=== PATIENT | male | born 1950 | race African-American/Black ===

== ENCOUNTER 2022-01-06 16:51 | Inpatient (IN) ==
[2022-01-06] MEDS ORDERED: NOREPINEPHRINE 4 MG/4 ML VIAL IV ONE ×2 (17:00→20:26)
[2022-01-06] MEDS: NOREPINEPHRINE 8 MG in SODIUM CHLORIDE 0.9% 242 ML IV PRN ×2 (17:06→20:29)
[2022-01-06 17:28] LABS: Arterial Base Excess iSTAT -7 MMOL/L (-2.5-2.5); Arterial Bicarbonate iSTAT 19.1 MMOL/L (20-26); Arterial O2 Saturation iSTAT 100 % (95-100); Arterial PCO2 iSTAT 40 MM HG (35-48); Arterial PO2 iSTAT 268 MM HG (80-95); Arterial Total CO2 iSTAT 20 MMO/L (23-27); Arterial pH iSTAT 7.287 (7.35-7.45)
[2022-01-06 17:35] LABS: Basophils % 0.4 % (0.0-0.8); Eosinophils % 0.4 % (0.00-10.9); Hematocrit 26.4 VOL% (42.0-52.0); Hemoglobin 8.1 GM/DL (14.0-18.0); Immature Granulocytes % 5.9 %; Immature Granulocytes Absolute 0.33 #; Lymphocytes # 2.8 10*3/uL (1.4-4.0); Mean Corpuscular HGB Conc 30.7 GM/DL (32-36); Mean Corpuscular Volume 89.5 FL (87-102); Mean Platelet Volume 11.1 FL (9.6-12.0); Monocytes % 4.3 % (1.7-12.7); NRBC # 0.17 10*3/uL; Platelet Count 94 T/CUMM (130-400); Red Blood Count 2.95 MC/CUMM (3.8-5.5); Red Cell Distribution Width 20.4 % (9.3-17.3); White Blood Count 5.6 T/CUMM (4-12)
[2022-01-06] MEDS ORDERED: propofoL 200 MG/20 ML VIAL IV ONE (17:46)
[2022-01-06] MEDS ORDERED: HYDROCORTISONE 100 MG VIAL IV STA (18:03)
[2022-01-06 18:09] LABS: Alanine Aminotransferase 43 U/L (16-61); Albumin 1.7 G/DL (3.4-5.0); Alkaline Phosphatase > 2330 U/L (45-117); Aspartate Amino Transferase 162 U/L (0-37); Bilirubin,Total < 0.39 MG/DL (0.20-1.00); Blood Urea Nitrogen 7 MG/DL (7-18); Calcium 7.6 MG/DL (8.5-10.1); Carbon Dioxide 26 MMOL/L (21-32); Estimated Glom Filtration Rate 122 ML/MIN; Glucose 102 MG/DL (74-106); Osmolality,Calculated 285.7 MOS/KG (273-304); Potassium 3.8 MMOL/L (3.5-5.1); Sodium 145 MMOL/L (136-145); Total Protein 4.6 G/DL (6.4-8.2)
[2022-01-06 18:12] LABS: Bacteria,Urine Occasional /HPF (Few); Mucus,Urine Occasional /LPF (Occasional); RBC,Urine 2 /HPF (0-4); Squamous Epithelial Cell,Urine Occasional /HPF (0-10)
[2022-01-06 18:15] LABS: Bilirubin,Urine Negative (Negative); Blood, Urine Trace mg/dL (Negative); Glucose,Urine (UA) Negative (Negative); Ketones,Urine Negative (Negative); Nitrite,Urine Negative (Negative); Protein,Urine 30 mg/dL (Negative); Urine Appearance Clear (Clear); Urine Color Yellow (Yellow); Urine Urobilinogen 0.2 eU/dL (<2.0)
[2022-01-06 18:24] LABS: Barbiturates Screen,Urine Negative (Negative); Benzodiazepines Screen,Urine Negative (Negative); Cannabinoid Screen,Urine Negative (Negative); Opiate Screen,Urine Positive (Negative); Phencyclidine Screen,Urine Negative (Negative)
[2022-01-06] MEDS ORDERED: DEXTROSE 50% 25 GM/50 ML SYRINGE IV ONE (18:29)
[2022-01-06 18:37] LABS: Band Neutrophils 5 % (0-10); Lymphocytes 54 % (20-55); Nucleated Red Blood Cells 1 (0-5); Segmented Neutrophils 38 % (50-85); Total Cells Counted 100
[2022-01-06 18:38] LABS: Platelet Estimate Decreased
[2022-01-06] MEDS ORDERED: DEXTROSE 50% 25 GM/50 ML VIAL IV STA (18:38)
[2022-01-06 18:39] LABS: Anisocytosis 3+; Atypical Lymphocytes Moderate
[2022-01-06] MEDS ORDERED: DEXTROSE 50% 25 GM/50 ML SYRINGE IV STA (18:39)
[2022-01-06 18:40] LABS: Poikilocytosis 2+
[2022-01-06] MEDS: DEXTROSE 5% NACL 0.9% 1,000 ML IV SCH (19:35)
[2022-01-06] MEDS ORDERED: ALBUTEROL 2.5 MG/3 ML NEB RESP TX PRN (19:35)
[2022-01-06] MEDS ORDERED: GLUCAGON 1 MG VIAL IM PRN (19:40)
[2022-01-06] MEDS ORDERED: DEXTROSE 10% 250 ML BAG IV PRN (19:45)
[2022-01-06 20:15] LABS: ABG Base Excess -0.9 MMOL/L (-2.5-2.5); ABG HCO3 23.7 MMOL/L (20-26); ABG Oxygen Saturation 97.9 % (95-100); ABG PCO2 38.1 MM HG (35-48); ABG PH 7.401 (7.35-7.45); ABG TCO2 21.5 MMOL/L (23-27)
[2022-01-06 20:22] LABS: Basophils % 0.7 % (0.0-0.8); Eosinophils % 1.3 % (0.00-10.9); Hematocrit 30.2 VOL% (42.0-52.0); Hemoglobin 9.7 GM/DL (14.0-18.0); Immature Granulocytes Absolute 0.03 #; Lymphocytes # 0.8 10*3/uL (1.4-4.0); Lymphocytes % 50.7 % (21.2-54.2); Mean Corpuscular HGB Conc 32.1 GM/DL (32-36); Mean Corpuscular Volume 84.8 FL (87-102); Mean Platelet Volume 11.7 FL (9.6-12.0); Monocytes % 3.3 % (1.7-12.7); NRBC # 0.06 10*3/uL; Platelet Count 95 T/CUMM (130-400); Red Blood Count 3.56 MC/CUMM (3.8-5.5); Red Cell Distribution Width 20.2 % (9.3-17.3); White Blood Count 1.5 T/CUMM (4-12)
[2022-01-06 20:29] LABS: Bacteria,Urine Occasional /HPF (Few); Hyaline Casts,Urine 4 /LPF (0-3); Mucus,Urine Occasional /LPF (Occasional); RBC,Urine 11 /HPF (0-4); Squamous Epithelial Cell,Urine Occasional /HPF (0-10)
[2022-01-06 20:30] LABS: Bilirubin,Urine Negative (Negative); Glucose,Urine (UA) Negative (Negative); Ketones,Urine Negative (Negative); Nitrite,Urine Negative (Negative); Protein,Urine 30 mg/dL (Negative); Urine Appearance Clear (Clear); Urine Color Yellow (Yellow); Urine Specific Gravity 1.015 (1.001-1.035)
[2022-01-06 20:31] LABS: Blood, Urine Moderate mg/dL (Negative); Urine Urobilinogen 0.2 eU/dL (<2.0)
[2022-01-06 20:39] LABS: INR 1.2; PT Patient Result 13.3 SECS (10.5-12.0)
[2022-01-06] MEDS ORDERED: ENOXAPARIN 40 MG/0.4 ML SYRINGE SUBCUT SCH (21:00)
[2022-01-06 21:13] LABS: Alanine Aminotransferase 57 U/L (16-61); Albumin 1.6 G/DL (3.4-5.0); Alkaline Phosphatase > 2330 U/L (45-117); Amylase 143 U/L (25-115); Aspartate Amino Transferase 222 U/L (0-37); Blood Urea Nitrogen 9 MG/DL (7-18); CKMB % 2.6 %; Calcium 6.3 MG/DL (8.5-10.1); Carbon Dioxide 23 MMOL/L (21-32); Estimated Glom Filtration Rate 139 ML/MIN; Glucose 140 MG/DL (74-106); Potassium 3.1 MMOL/L (3.5-5.1); Sodium 143 MMOL/L (136-145); Total Protein 4.9 G/DL (6.4-8.2)
[2022-01-06] MEDS ORDERED: MAGNESIUM SULF RIDER 1 GM/100 ML PREMIX IV PRN (21:26)
[2022-01-06] MEDS: POTASSIUM CHLORIDE RIDER 20 MEQ/100 ML PREMIX IV PRN (21:35)
[2022-01-06] MEDS ORDERED: CALCIUM GLUCONATE RIDER 1,000 MG/50 ML PREMIX IV ONE (22:01)
[2022-01-06] MEDS: HYDROCORTISONE 100 MG VIAL IV SCH (22:32)
[2022-01-06] MEDS ORDERED: ENOXAPARIN 40 MG/0.4 ML SYRINGE SUBCUT ONE (22:36)
[2022-01-07] MEDS ORDERED: CISATRACURIUM 10 MG/5 ML VIAL IV ONE ×2 (01:08→01:24)
[2022-01-07 02:30] LABS: Basophils % 0.5 % (0.0-0.8); Hematocrit 28.3 VOL% (42.0-52.0); Immature Granulocytes % 2.9 %; Immature Granulocytes Absolute 0.06 #; Lymphocytes # 0.7 10*3/uL (1.4-4.0); Lymphocytes % 31.7 % (21.2-54.2); Mean Corpuscular HGB Conc 31.8 GM/DL (32-36); Mean Corpuscular Volume 85.2 FL (87-102); Mean Platelet Volume 9.6 FL (9.6-12.0); Monocytes % 5.9 % (1.7-12.7); NRBC # 0.04 10*3/uL; Red Blood Count 3.32 MC/CUMM (3.8-5.5); Red Cell Distribution Width 20.3 % (9.3-17.3); White Blood Count 2.1 T/CUMM (4-12)
[2022-01-07 02:31] LABS: Platelet Count 75 T/CUMM (130-400)
[2022-01-07 02:41] LABS: Calcium 7.4 MG/DL (8.5-10.1); Osmolality,Calculated 286.1 MOS/KG (273-304); Potassium 2.7 MMOL/L (3.5-5.1)
[2022-01-07 02:42] LABS: INR 1.3; Partial Thromboplastin Time 30.5 SECS (23.8-32.1)
[2022-01-07] MEDS: POTASSIUM CHLORIDE RIDER 20 MEQ/100 ML PREMIX IV PRN ×4 (02:50→15:14)
[2022-01-07 03:03] LABS: Band Neutrophils 12 % (0-10); Eosinophils 2 % (0-10); Hypochromia 1+; Lymphocytes 36 % (20-55); Microcytosis 1+; Platelet Estimate Decreased; Segmented Neutrophils 45 % (50-85); Total Cells Counted 100
[2022-01-07] MEDS ORDERED: MEPERIDINE 25 MG/1 ML VIAL IV ONE (03:04)
[2022-01-07] MEDS: DEXTROSE 5% NACL 0.9% 1,000 ML IV SCH ×2 (03:30→05:07)
[2022-01-07 04:18] LABS: CKMB % 2.7 %; Calcium 7.5 MG/DL (8.5-10.1); High Sensitive Troponin I* 64.8 ng/L (0-78); Potassium 2.7 MMOL/L (3.5-5.1)
[2022-01-07 04:26] LABS: ABG Base Excess -0.7 MMOL/L (-2.5-2.5); ABG HCO3 23.9 MMOL/L (20-26); ABG PCO2 33.4 MM HG (35-48); ABG PH 7.442 (7.35-7.45); ABG TCO2 20.2 MMOL/L (23-27)
[2022-01-07] MEDS: HYDROCORTISONE 100 MG VIAL IV SCH ×4 (04:57→22:18)
[2022-01-07] MEDS ORDERED: CISATRACURIUM 10 MG/5 ML VIAL IV PRN (05:08)
[2022-01-07] MEDS ORDERED: INSULIN REGULAR 100 UNIT/ML IV ONE ×4 (06:22→20:17)
[2022-01-07] MEDS: POTASSIUM CHLORIDE RIDER 10 MEQ/100 ML PREMIX IV PRN ×2 (06:46→12:09)
[2022-01-07] MEDS: PIPERACILLIN/TAZOBACTAM 3,375 MG in SODIUM CHLORIDE 0.9% 100 ML IV SCH ×2 (09:13→17:10)
[2022-01-07] MEDS: PANTOPRAZOLE 40 MG VIAL IV SCH (09:14)
[2022-01-07] MEDS: ENOXAPARIN 80 MG/0.8 ML SYRINGE SUBCUT SCH ×2 (09:14→20:42)
[2022-01-07] MEDS: MINERAL OIL/PETROLATUM OPH OINT 3.5 GM TUBE BOTH EYES SCH ×3 (09:15→20:43)
[2022-01-07 09:23] LABS: CKMB % 2.8 %; Calcium 7.3 MG/DL (8.5-10.1); High Sensitive Troponin I* 42.4 ng/L (0-78); Osmolality,Calculated 290.1 MOS/KG (273-304); Potassium 3.5 MMOL/L (3.5-5.1)
[2022-01-07 09:51] LABS: Bacteria,Urine Occasional /HPF (Few); RBC,Urine 5 /HPF (0-4); Squamous Epithelial Cell,Urine Occasional /HPF (0-10)
[2022-01-07 09:52] LABS: Bilirubin,Urine Negative (Negative); Glucose,Urine (UA) Negative (Negative); Ketones,Urine Negative (Negative); Nitrite,Urine Negative (Negative); Protein,Urine Negative (Negative); Urine Appearance Clear (Clear); Urine Color Yellow (Yellow); Urine Specific Gravity <= 1.005 (1.001-1.035)
[2022-01-07 09:53] LABS: Blood, Urine Trace mg/dL (Negative); Urine Urobilinogen 0.2 eU/dL (<2.0)
[2022-01-07] MEDS: LACTATED RINGERS 1,000 ML IV SCH ×2 (09:57→23:34)
[2022-01-07 09:58] LABS: Eosinophils % 0.4 % (0.00-10.9); Hematocrit 26.7 VOL% (42.0-52.0); Hemoglobin 8.6 GM/DL (14.0-18.0); Immature Granulocytes % 1.7 %; Immature Granulocytes Absolute 0.04 #; Lymphocytes # 0.8 10*3/uL (1.4-4.0); Lymphocytes % 31.7 % (21.2-54.2); Mean Corpuscular HGB Conc 32.2 GM/DL (32-36); Mean Corpuscular Volume 84.2 FL (87-102); Mean Platelet Volume 9.4 FL (9.6-12.0); Monocytes % 7.1 % (1.7-12.7); NRBC # 0.04 10*3/uL; Neutrophils % 59.1 % (38.7-73.9); Platelet Count 75 T/CUMM (130-400); Red Blood Count 3.17 MC/CUMM (3.8-5.5); Red Cell Distribution Width 20.1 % (9.3-17.3); White Blood Count 2.4 T/CUMM (4-12)
[2022-01-07 10:05] LABS: INR 1.3
[2022-01-07 10:07] LABS: Partial Thromboplastin Time 43.1 SECS (23.8-32.1)
[2022-01-07] MEDS ORDERED: MAGNESIUM SULF RIDER 2 GM/50 ML PREMIX IV ONE (10:09)
[2022-01-07 11:06] LABS: Hypochromia Slight; Lymphocytes 36 % (20-55); Metamyelocytes 4 %; Microcytosis Slight; Nucleated Red Blood Cells 1 (0-5); Platelet Estimate Adequate; Segmented Neutrophils 54 % (50-85); Total Cells Counted 100
[2022-01-07 11:07] LABS: Burr Cells 1+; Polychromasia Slight; Schistocytes Few; Tear Drop Cells Few
[2022-01-07] MEDS: VANCOMYCIN INJ 1,500 MG in SODIUM CHLORIDE 0.9% 500 ML IV SCH ×2 (11:12→21:19)
[2022-01-07] MEDS: NOREPINEPHRINE 8 MG in SODIUM CHLORIDE 0.9% 242 ML IV PRN (13:06)
[2022-01-07 14:14] LABS: Basophils % 0.4 % (0.0-0.8); Eosinophils % 0.4 % (0.00-10.9); Hematocrit 25.2 VOL% (42.0-52.0); Hemoglobin 8.1 GM/DL (14.0-18.0); Immature Granulocytes % 5.2 %; Immature Granulocytes Absolute 0.14 #; Lymphocytes # 0.8 10*3/uL (1.4-4.0); Lymphocytes % 28.1 % (21.2-54.2); Mean Corpuscular HGB Conc 32.1 GM/DL (32-36); Mean Corpuscular Volume 84.6 FL (87-102); Mean Platelet Volume 10.6 FL (9.6-12.0); Monocytes % 6.7 % (1.7-12.7); NRBC # 0.03 10*3/uL; Neutrophils % 59.2 % (38.7-73.9); Platelet Count 69 T/CUMM (130-400); Red Blood Count 2.98 MC/CUMM (3.8-5.5); White Blood Count 2.7 T/CUMM (4-12)
[2022-01-07 14:21] LABS: INR 1.3; PT Patient Result 14.3 SECS (10.5-12.0)
[2022-01-07 14:41] LABS: Anisocytosis 1+; Burr Cells 1+; Lymphocytes 40 % (20-55); Metamyelocytes 2 %; Myelocytes 1 %; Nucleated Red Blood Cells 1 (0-5); Segmented Neutrophils 43 % (50-85); Total Cells Counted 100
[2022-01-07 14:42] LABS: Hypochromia Slight
[2022-01-07 14:43] LABS: Platelet Estimate Decreased; Polychromasia Slight
[2022-01-07 14:46] LABS: CKMB % 2.9 %; Calcium 7.4 MG/DL (8.5-10.1); High Sensitive Troponin I* 33.8 ng/L (0-78); Potassium 3.9 MMOL/L (3.5-5.1)
[2022-01-07 20:14] LABS: Basophils % 0.4 % (0.0-0.8); Eosinophils % 0.4 % (0.00-10.9); Hematocrit 24.5 VOL% (42.0-52.0); Hemoglobin 8.1 GM/DL (14.0-18.0); Immature Granulocytes % 1.8 %; Immature Granulocytes Absolute 0.05 #; Lymphocytes # 0.8 10*3/uL (1.4-4.0); Lymphocytes % 27.6 % (21.2-54.2); Mean Corpuscular HGB Conc 33.1 GM/DL (32-36); Mean Corpuscular Volume 84.2 FL (87-102); Mean Platelet Volume 11.9 FL (9.6-12.0); Monocytes % 5.1 % (1.7-12.7); NRBC # 0.02 10*3/uL; Neutrophils % 64.7 % (38.7-73.9); Platelet Count 79 T/CUMM (130-400); Red Blood Count 2.91 MC/CUMM (3.8-5.5); White Blood Count 2.7 T/CUMM (4-12)
[2022-01-07] MEDS ORDERED: LACTATED RINGERS 1,000 ML IV ONE (20:36)
[2022-01-07 20:41] LABS: CKMB % 3.2 %; Calcium 7.5 MG/DL (8.5-10.1); High Sensitive Troponin I* 25.3 ng/L (0-78); Osmolality,Calculated 288.1 MOS/KG (273-304)
[2022-01-07] MEDS ORDERED: LACTATED RINGERS 500 ML IV ONE (20:44)
[2022-01-07 20:46] LABS: INR 1.3; Lymphocytes 36 % (20-55); Metamyelocytes 2 %; Myelocytes 2 %; Nucleated Red Blood Cells 2 (0-5); PT Patient Result 14.6 SECS (10.5-12.0); Segmented Neutrophils 58 % (50-85); Total Cells Counted 100
[2022-01-07 20:47] LABS: Anisocytosis 1+; Burr Cells 1+; Hypochromia Slight; Microcytosis Slight; Ovalocytes Slight; Platelet Estimate Decreased; Polychromasia Slight
[2022-01-07 20:48] LABS: Atypical Lymphocytes Few
[2022-01-07 20:49] LABS: Partial Thromboplastin Time 51.3 SECS (23.8-32.1)
[2022-01-08] MEDS: PIPERACILLIN/TAZOBACTAM 3,375 MG in SODIUM CHLORIDE 0.9% 100 ML IV SCH ×2 (00:38→08:12)
[2022-01-08 02:24] LABS: Basophils % 0.3 % (0.0-0.8); Hematocrit 24.1 VOL% (42.0-52.0); Hemoglobin 7.8 GM/DL (14.0-18.0); Immature Granulocytes % 0.9 %; Immature Granulocytes Absolute 0.03 #; Lymphocytes # 0.7 10*3/uL (1.4-4.0); Lymphocytes % 22.1 % (21.2-54.2); Mean Corpuscular HGB Conc 32.4 GM/DL (32-36); Mean Platelet Volume 9.8 FL (9.6-12.0); NRBC # 0.02 10*3/uL; Neutrophils % 72.7 % (38.7-73.9); Red Blood Count 2.87 MC/CUMM (3.8-5.5); Red Cell Distribution Width 19.9 % (9.3-17.3); White Blood Count 3.2 T/CUMM (4-12)
[2022-01-08 02:35] LABS: Calcium 7.2 MG/DL (8.5-10.1)
[2022-01-08 02:37] LABS: Platelet Count 61 T/CUMM (130-400)
[2022-01-08 02:46] LABS: INR 1.4; PT Patient Result 15.6 SECS (10.5-12.0)
[2022-01-08 02:47] LABS: Partial Thromboplastin Time 55.6 SECS (23.8-32.1)
[2022-01-08 03:09] LABS: Band Neutrophils 12 % (0-10); Hypochromia 1+; Lymphocytes 20 % (20-55); Microcytosis 1+; Myelocytes 2 %; Platelet Estimate Decreased; Segmented Neutrophils 65 % (50-85); Total Cells Counted 100
[2022-01-08 03:10] LABS: Burr Cells Slight; Ovalocytes Slight
[2022-01-08] MEDS ORDERED: LACTATED RINGERS 500 ML IV ONE (03:57)
[2022-01-08] MEDS: HYDROCORTISONE 100 MG VIAL IV SCH ×4 (04:10→22:04)
[2022-01-08] MEDS: LACTATED RINGERS 1,000 ML IV SCH ×3 (04:31→20:45)
[2022-01-08 05:14] LABS: ABG Base Excess -1.2 MMOL/L (-2.5-2.5); ABG HCO3 23.4 MMOL/L (20-26); ABG Oxygen Saturation 99.2 % (95-100); ABG PCO2 32.3 MM HG (35-48); ABG PH 7.446 (7.35-7.45); ABG TCO2 20.2 MMOL/L (23-27)
[2022-01-08] MEDS: PANTOPRAZOLE 40 MG VIAL IV SCH (08:12)
[2022-01-08] MEDS: ENOXAPARIN 80 MG/0.8 ML SYRINGE SUBCUT SCH (08:12)
[2022-01-08] MEDS: MINERAL OIL/PETROLATUM OPH OINT 3.5 GM TUBE BOTH EYES SCH ×3 (08:15→20:44)
[2022-01-08 08:27] LABS: Hematocrit 22.8 VOL% (42.0-52.0); Hemoglobin 7.6 GM/DL (14.0-18.0); Immature Granulocytes % 1.5 %; Immature Granulocytes Absolute 0.06 #; Lymphocytes # 0.8 10*3/uL (1.4-4.0); Lymphocytes % 18.5 % (21.2-54.2); Mean Corpuscular HGB Conc 33.3 GM/DL (32-36); Mean Corpuscular Volume 83.2 FL (87-102); Mean Platelet Volume 10.5 FL (9.6-12.0); Monocytes % 4.7 % (1.7-12.7); NRBC # 0.02 10*3/uL; Neutrophils % 75.3 % (38.7-73.9); Platelet Count 60 T/CUMM (130-400); Red Blood Count 2.74 MC/CUMM (3.8-5.5); Red Cell Distribution Width 20.1 % (9.3-17.3); White Blood Count 4.1 T/CUMM (4-12)
[2022-01-08 08:36] LABS: INR 1.4; PT Patient Result 15.2 SECS (10.5-12.0); Partial Thromboplastin Time 50.3 SECS (23.8-32.1)
[2022-01-08] MEDS: MEROPENEM 500 MG in SODIUM CHLORIDE 0.9% 100 ML IV SCH ×3 (08:36→20:43)
[2022-01-08 08:43] LABS: Calcium 7.1 MG/DL (8.5-10.1); Osmolality,Calculated 284.3 MOS/KG (273-304); Potassium 4.1 MMOL/L (3.5-5.1)
[2022-01-08 08:50] LABS: Band Neutrophils 17 % (0-10); Hypochromia 1+; Lymphocytes 21 % (20-55); Microcytosis 1+; Nucleated Red Blood Cells 1 (0-5); Platelet Estimate Decreased; Segmented Neutrophils 58 % (50-85); Total Cells Counted 100
[2022-01-08] MEDS ORDERED: MAGNESIUM SULF RIDER 4 GM/100 ML PREMIX IV PRN (09:07)
[2022-01-08] MEDS ORDERED: MAGNESIUM SULF RIDER 2 GM/50 ML PREMIX IV PRN (09:09)
[2022-01-08] MEDS: VANCOMYCIN INJ 1,500 MG in SODIUM CHLORIDE 0.9% 500 ML IV SCH ×2 (09:10→22:04)
[2022-01-08] MEDS ORDERED: LACTATED RINGERS 1,000 ML IV ONE (10:11)
[2022-01-08 10:12] LABS: ABG Base Excess -1.2 MMOL/L (-2.5-2.5); ABG HCO3 23.4 MMOL/L (20-26); ABG Oxygen Saturation 99.4 % (95-100); ABG PCO2 31.3 MM HG (35-48); ABG PH 7.459 (7.35-7.45); ABG TCO2 20.7 MMOL/L (23-27)
[2022-01-08 10:27] LABS: Basophils % 0.2 % (0.0-0.8); Hematocrit 21.7 VOL% (42.0-52.0); Hemoglobin 7.1 GM/DL (14.0-18.0); Immature Granulocytes % 3.5 %; Immature Granulocytes Absolute 0.15 #; Lymphocytes # 0.8 10*3/uL (1.4-4.0); Lymphocytes % 17.7 % (21.2-54.2); Mean Corpuscular HGB Conc 32.7 GM/DL (32-36); Mean Corpuscular Volume 84.8 FL (87-102); Neutrophils % 74.6 % (38.7-73.9); Platelet Count 56 T/CUMM (130-400); Red Blood Count 2.56 MC/CUMM (3.8-5.5); Red Cell Distribution Width 19.9 % (9.3-17.3); White Blood Count 4.3 T/CUMM (4-12)
[2022-01-08 10:36] LABS: INR 1.5; Partial Thromboplastin Time 57.5 SECS (23.8-32.1)
[2022-01-08 10:49] LABS: Band Neutrophils 7 % (0-10); Lymphocytes 19 % (20-55); Nucleated Red Blood Cells 2 (0-5); Segmented Neutrophils 69 % (50-85); Total Cells Counted 100
[2022-01-08 10:50] LABS: Acanthocytes Few; Hypochromia 1+; Microcytosis 1+
[2022-01-08 10:51] LABS: Burr Cells 1+; Platelet Estimate Decreased; Polychromasia Slight
[2022-01-08 11:07] LABS: Albumin 1.1 G/DL (3.4-5.0); Bilirubin,Total 1.5 MG/DL (0.20-1.00); CKMB % 3.6 %; Calcium 7.1 MG/DL (8.5-10.1); High Sensitive Troponin I* 17.8 ng/L (0-78); Osmolality,Calculated 286.1 MOS/KG (273-304); Total Protein 4.5 G/DL (6.4-8.2)
[2022-01-08 14:31] LABS: Basophils % 0.2 % (0.0-0.8); Hematocrit 21.5 VOL% (42.0-52.0); Hemoglobin 7.2 GM/DL (14.0-18.0); Immature Granulocytes Absolute 0.33 #; Lymphocytes # 0.9 10*3/uL (1.4-4.0); Lymphocytes % 15.5 % (21.2-54.2); Mean Corpuscular HGB Conc 33.5 GM/DL (32-36); Mean Corpuscular Volume 82.7 FL (87-102); Mean Platelet Volume 9.9 FL (9.6-12.0); Monocytes % 3.8 % (1.7-12.7); NRBC # 0.02 10*3/uL; Neutrophils % 74.5 % (38.7-73.9); Platelet Count 62 T/CUMM (130-400); White Blood Count 5.5 T/CUMM (4-12)
[2022-01-08 14:53] LABS: Osmolality,Calculated 286.1 MOS/KG (273-304); Potassium 4.1 MMOL/L (3.5-5.1)
[2022-01-08 14:54] LABS: INR 1.4
[2022-01-08 15:28] LABS: Band Neutrophils 6 % (0-10); Lymphocytes 14 % (20-55); Metamyelocytes 6 %; Myelocytes 1 %; Nucleated Red Blood Cells 1 (0-5); Segmented Neutrophils 72 % (50-85); Total Cells Counted 100
[2022-01-08 15:30] LABS: Acanthocytes 2+; Polychromasia 1+; Schistocytes 1+; Tear Drop Cells 1+
[2022-01-08 15:31] LABS: Anisocytosis 2+; Platelet Estimate Increased; Poikilocytosis 2+
[2022-01-08] MEDS ORDERED: INSULIN REGULAR 100 UNIT/ML SUBCUT SCH (18:30)
[2022-01-08 20:27] LABS: Calcium 7.3 MG/DL (8.5-10.1); Osmolality,Calculated 285.4 MOS/KG (273-304)
[2022-01-08 20:30] LABS: Basophils % 0.1 % (0.0-0.8); Hematocrit 22.6 VOL% (42.0-52.0); Hemoglobin 7.5 GM/DL (14.0-18.0); Immature Granulocytes % 2.7 %; Immature Granulocytes Absolute 0.19 #; Lymphocytes # 0.8 10*3/uL (1.4-4.0); Lymphocytes % 11.3 % (21.2-54.2); Mean Corpuscular HGB Conc 33.2 GM/DL (32-36); Mean Corpuscular Volume 84.6 FL (87-102); Mean Platelet Volume 9.4 FL (9.6-12.0); Monocytes % 3.4 % (1.7-12.7); NRBC # 0.03 10*3/uL; Neutrophils % 82.5 % (38.7-73.9); Platelet Count 67 T/CUMM (130-400); Red Blood Count 2.67 MC/CUMM (3.8-5.5); Red Cell Distribution Width 20.1 % (9.3-17.3); White Blood Count 7.2 T/CUMM (4-12)
[2022-01-08] MEDS: INSULIN REGULAR 100 UNIT/ML SUBCUT SCH ×2 (20:43→23:56)
[2022-01-08 20:48] LABS: INR 1.3; PT Patient Result 13.8 SECS (10.5-12.0)
[2022-01-08 20:49] LABS: Partial Thromboplastin Time 48.7 SECS (23.8-32.1)
[2022-01-09] MEDS: MEROPENEM 500 MG in SODIUM CHLORIDE 0.9% 100 ML IV SCH ×4 (02:02→20:05)
[2022-01-09 04:44] LABS: ABG Base Excess -2.6 MMOL/L (-2.5-2.5); ABG HCO3 22.2 MMOL/L (20-26); ABG Oxygen Saturation 98.6 % (95-100); ABG PCO2 33.6 MM HG (35-48); ABG PH 7.413 (7.35-7.45); ABG TCO2 19.9 MMOL/L (23-27)
[2022-01-09 04:51] LABS: Basophils % 0.1 % (0.0-0.8); Hematocrit 23.4 VOL% (42.0-52.0); Hemoglobin 7.5 GM/DL (14.0-18.0); Immature Granulocytes % 1.7 %; Immature Granulocytes Absolute 0.16 #; Lymphocytes # 1.1 10*3/uL (1.4-4.0); Lymphocytes % 11.4 % (21.2-54.2); Mean Corpuscular HGB Conc 32.1 GM/DL (32-36); Mean Corpuscular Volume 85.4 FL (87-102); Monocytes % 3.7 % (1.7-12.7); NRBC # 0.04 10*3/uL; Neutrophils % 83.1 % (38.7-73.9); Platelet Count 73 T/CUMM (130-400); Red Blood Count 2.74 MC/CUMM (3.8-5.5); Red Cell Distribution Width 20.3 % (9.3-17.3); White Blood Count 9.3 T/CUMM (4-12)
[2022-01-09 05:15] LABS: Acanthocytes Few; Band Neutrophils 2 % (0-10); Burr Cells Slight; Hypochromia 1+; Lymphocytes 9 % (20-55); Microcytosis 1+; Nucleated Red Blood Cells 1 (0-5); Platelet Estimate Decreased; Segmented Neutrophils 85 % (50-85); Total Cells Counted 100
[2022-01-09 05:18] LABS: Albumin 1.4 G/DL (3.4-5.0); Bilirubin,Total 0.5 MG/DL (0.20-1.00); Calcium 7.9 MG/DL (8.5-10.1); Osmolality,Calculated 287.3 MOS/KG (273-304); Potassium 3.7 MMOL/L (3.5-5.1); Total Protein 5.1 G/DL (6.4-8.2)
[2022-01-09] MEDS: INSULIN REGULAR 100 UNIT/ML SUBCUT SCH ×6 (05:27→23:48)
[2022-01-09] MEDS: HYDROCORTISONE 100 MG VIAL IV SCH ×2 (05:28→17:59)
[2022-01-09] MEDS: POTASSIUM CHLORIDE RIDER 20 MEQ/100 ML PREMIX IV PRN (06:07)
[2022-01-09] MEDS: LACTATED RINGERS 1,000 ML IV SCH ×3 (06:08→23:48)
[2022-01-09] MEDS: MINERAL OIL/PETROLATUM OPH OINT 3.5 GM TUBE BOTH EYES SCH ×3 (08:38→20:04)
[2022-01-09] MEDS: FONDAPARINUX 7.5 MG/0.6 ML SYRINGE SUBCUT SCH (08:38)
[2022-01-09] MEDS: PANTOPRAZOLE 40 MG VIAL IV SCH (08:38)
[2022-01-09] MEDS: VANCOMYCIN INJ 1,500 MG in SODIUM CHLORIDE 0.9% 500 ML IV SCH (10:11)
[2022-01-10] MEDS: MEROPENEM 500 MG in SODIUM CHLORIDE 0.9% 100 ML IV SCH ×2 (02:46→08:19)
[2022-01-10 04:11] LABS: ABG Base Excess -1.1 MMOL/L (-2.5-2.5); ABG HCO3 23.5 MMOL/L (20-26); ABG PCO2 36.3 MM HG (35-48); ABG PH 7.414 (7.35-7.45)
[2022-01-10 04:12] LABS: Basophils % 0.1 % (0.0-0.8); Hemoglobin 6.7 GM/DL (14.0-18.0); Immature Granulocytes % 0.9 %; Immature Granulocytes Absolute 0.08 #; Lymphocytes # 1.9 10*3/uL (1.4-4.0); Lymphocytes % 19.9 % (21.2-54.2); Mean Corpuscular HGB Conc 31.9 GM/DL (32-36); Mean Corpuscular Volume 86.8 FL (87-102); Mean Platelet Volume 11.1 FL (9.6-12.0); Monocytes % 4.1 % (1.7-12.7); NRBC # 0.06 10*3/uL; Platelet Count 81 T/CUMM (130-400); Red Blood Count 2.42 MC/CUMM (3.8-5.5); Red Cell Distribution Width 20.5 % (9.3-17.3); White Blood Count 9.3 T/CUMM (4-12)
[2022-01-10 04:31] LABS: Band Neutrophils 3 % (0-10); Lymphocytes 17 % (20-55); Microcytosis 1+; Nucleated Red Blood Cells 1 (0-5); Segmented Neutrophils 78 % (50-85); Total Cells Counted 100
[2022-01-10 04:32] LABS: Hypochromia Slight; Ovalocytes Slight; Platelet Estimate Decreased; Tear Drop Cells Slight
[2022-01-10 04:33] LABS: Calcium 7.9 MG/DL (8.5-10.1); Osmolality,Calculated 293.6 MOS/KG (273-304); Potassium 3.4 MMOL/L (3.5-5.1)
[2022-01-10] MEDS: INSULIN REGULAR 100 UNIT/ML SUBCUT SCH ×4 (04:48→16:51)
[2022-01-10] MEDS: POTASSIUM CHLORIDE RIDER 20 MEQ/100 ML PREMIX IV PRN (05:11)
[2022-01-10] MEDS: HYDROCORTISONE 100 MG VIAL IV SCH ×2 (05:11→18:37)
[2022-01-10 06:46] LABS: Hematocrit 21.6 VOL% (42.0-52.0); Hemoglobin 6.8 GM/DL (14.0-18.0)
[2022-01-10] MEDS: PANTOPRAZOLE 40 MG VIAL IV SCH (08:19)
[2022-01-10] MEDS: FONDAPARINUX 7.5 MG/0.6 ML SYRINGE SUBCUT SCH (08:19)
[2022-01-10] MEDS: MINERAL OIL/PETROLATUM OPH OINT 3.5 GM TUBE BOTH EYES SCH ×3 (08:20→21:34)
[2022-01-10] MEDS: LACTATED RINGERS 1,000 ML IV SCH ×2 (08:30→21:34)
[2022-01-10] MEDS: FAMOTIDINE 8 MG/ML 50 ML/BOTTLE PO SCH ×3 (09:56→17:36)
[2022-01-10] MEDS: CEFEPIME 1,000 MG in SODIUM CHLORIDE 0.9% 100 ML IV SCH ×3 (09:56→21:36)
[2022-01-10] MEDS ORDERED: POTASSIUM PHOSPHATE 30 MMOL in SODIUM CHLORIDE 0.9% 250 ML IV ONE (10:00)
[2022-01-10 14:42] VITALS: BP 152/70
[2022-01-10] MEDS ORDERED: METOPROLOL TARTRATE 5 MG/5 ML VIAL IV ONE (19:26)
[2022-01-10 20:07] LABS: Hemoglobin 7.9 GM/DL (14.0-18.0)
[2022-01-11] MEDS: INSULIN REGULAR 100 UNIT/ML SUBCUT SCH ×4 (00:10→18:25)
[2022-01-11] MEDS: CEFEPIME 1,000 MG in SODIUM CHLORIDE 0.9% 100 ML IV SCH ×4 (04:23→21:16)
[2022-01-11 05:10] LABS: ABG Base Excess -0.8 MMOL/L (-2.5-2.5); ABG HCO3 23.8 MMOL/L (20-26); ABG Oxygen Saturation 99.4 % (95-100); ABG PCO2 35.4 MM HG (35-48); ABG PH 7.427 (7.35-7.45); ABG TCO2 21.9 MMOL/L (23-27)
[2022-01-11 05:13] LABS: Basophils % 0.1 % (0.0-0.8); Eosinophils % 0.2 % (0.00-10.9); Hematocrit 23.7 VOL% (42.0-52.0); Hemoglobin 7.5 GM/DL (14.0-18.0); Immature Granulocytes % 1.8 %; Immature Granulocytes Absolute 0.15 #; Lymphocytes # 1.9 10*3/uL (1.4-4.0); Lymphocytes % 22.8 % (21.2-54.2); Mean Corpuscular HGB Conc 31.6 GM/DL (32-36); Mean Corpuscular Volume 88.8 FL (87-102); Mean Platelet Volume 11.6 FL (9.6-12.0); Monocytes % 4.6 % (1.7-12.7); Neutrophils % 70.5 % (38.7-73.9); Platelet Count 81 T/CUMM (130-400); Red Blood Count 2.67 MC/CUMM (3.8-5.5); Red Cell Distribution Width 19.5 % (9.3-17.3); White Blood Count 8.4 T/CUMM (4-12)
[2022-01-11 05:26] LABS: Calcium 7.6 MG/DL (8.5-10.1); Potassium 3.9 MMOL/L (3.5-5.1)
[2022-01-11 05:29] LABS: Osmolality,Calculated 295.7 MOS/KG (273-304)
[2022-01-11 05:32] LABS: Band Neutrophils 1 % (0-10); Hypochromia 1+; Lymphocytes 21 % (20-55); Microcytosis 1+; Platelet Estimate Decreased; Segmented Neutrophils 73 % (50-85); Total Cells Counted 100
[2022-01-11 05:33] LABS: Ovalocytes Slight
[2022-01-11] MEDS: LACTATED RINGERS 1,000 ML IV SCH ×2 (06:06→13:58)
[2022-01-11] MEDS: HYDROCORTISONE 100 MG VIAL IV SCH ×2 (06:20→18:24)
[2022-01-11] MEDS: POTASSIUM CHLORIDE RIDER 10 MEQ/100 ML PREMIX IV PRN ×2 (06:25→09:01)
[2022-01-11] MEDS: PANTOPRAZOLE 40 MG VIAL IV SCH (09:02)
[2022-01-11] MEDS: FONDAPARINUX 7.5 MG/0.6 ML SYRINGE SUBCUT SCH (09:02)
[2022-01-11] MEDS: MINERAL OIL/PETROLATUM OPH OINT 3.5 GM TUBE BOTH EYES SCH ×3 (09:03→21:13)
[2022-01-11] MEDS: METOPROLOL TARTRATE 50 MG TABLET PER TUBE SCH ×2 (10:19→21:16)
[2022-01-12] MEDS: INSULIN REGULAR 100 UNIT/ML SUBCUT SCH ×4 (00:54→17:45)
[2022-01-12] MEDS: CEFEPIME 1,000 MG in SODIUM CHLORIDE 0.9% 100 ML IV SCH ×4 (04:54→21:18)
[2022-01-12 05:06] LABS: ABG Base Excess -0.8 MMOL/L (-2.5-2.5); ABG HCO3 22.6 MMOL/L (20-26); ABG Oxygen Saturation 98.7 % (95-100); ABG PCO2 31.8 MM HG (35-48); ABG PO2 204.5 MM HG (80-95); ABG TCO2 23.6 MMOL/L (23-27)
[2022-01-12 05:20] LABS: Basophils % 0.1 % (0.0-0.8); Eosinophils % 0.2 % (0.00-10.9); Hematocrit 25.2 VOL% (42.0-52.0); Hemoglobin 7.8 GM/DL (14.0-18.0); Immature Granulocytes % 3.3 %; Immature Granulocytes Absolute 0.28 #; Lymphocytes # 2.1 10*3/uL (1.4-4.0); Lymphocytes % 24.5 % (21.2-54.2); Mean Corpuscular Volume 88.4 FL (87-102); Mean Platelet Volume 11.7 FL (9.6-12.0); NRBC # 0.14 10*3/uL; Neutrophils % 66.9 % (38.7-73.9); Platelet Count 90 T/CUMM (130-400); Red Blood Count 2.85 MC/CUMM (3.8-5.5); Red Cell Distribution Width 19.4 % (9.3-17.3); White Blood Count 8.4 T/CUMM (4-12)
[2022-01-12 05:33] LABS: Calcium 7.9 MG/DL (8.5-10.1); Osmolality,Calculated 298.3 MOS/KG (273-304); Potassium 4.2 MMOL/L (3.5-5.1)
[2022-01-12] MEDS: HYDROCORTISONE 100 MG VIAL IV SCH ×3 (05:45→21:22)
[2022-01-12 06:37] LABS: Anisocytosis 1+; Atypical Lymphocytes Few; Band Neutrophils 7 % (0-10); Basophilic Stippling Slight; Lymphocytes 30 % (20-55); Myelocytes 1 %; Nucleated Red Blood Cells 6 (0-5); Ovalocytes Few; Platelet Estimate Decreased; Polychromasia Slight; Segmented Neutrophils 57 % (50-85); Tear Drop Cells Few; Total Cells Counted 100
[2022-01-12 06:38] LABS: Burr Cells 1+
[2022-01-12] MEDS: METOPROLOL TARTRATE 50 MG TABLET PER TUBE SCH ×2 (08:11→21:18)
[2022-01-12] MEDS: PANTOPRAZOLE 40 MG VIAL IV SCH (08:15)
[2022-01-12] MEDS: FONDAPARINUX 7.5 MG/0.6 ML SYRINGE SUBCUT SCH (08:18)
[2022-01-12] MEDS: MINERAL OIL/PETROLATUM OPH OINT 3.5 GM TUBE BOTH EYES SCH ×3 (08:20→21:26)
[2022-01-13] MEDS: INSULIN REGULAR 100 UNIT/ML SUBCUT SCH ×4 (00:13→18:09)
[2022-01-13] MEDS: CEFEPIME 1,000 MG in SODIUM CHLORIDE 0.9% 100 ML IV SCH ×4 (04:13→21:02)
[2022-01-13 05:39] LABS: ABG Base Excess 0.4 MMOL/L (-2.5-2.5); ABG HCO3 24.8 MMOL/L (20-26); ABG Oxygen Saturation 99.2 % (95-100); ABG PCO2 34.1 MM HG (35-48); ABG PH 7.456 (7.35-7.45); ABG TCO2 22.4 MMOL/L (23-27)
[2022-01-13 05:55] LABS: Basophils % 0.1 % (0.0-0.8); Eosinophils % 0.5 % (0.00-10.9); Hematocrit 24.9 VOL% (42.0-52.0); Hemoglobin 7.8 GM/DL (14.0-18.0); Immature Granulocytes Absolute 0.38 #; Lymphocytes # 2.1 10*3/uL (1.4-4.0); Lymphocytes % 27.5 % (21.2-54.2); Mean Corpuscular HGB Conc 31.3 GM/DL (32-36); Mean Corpuscular Volume 89.6 FL (87-102); Mean Platelet Volume 12.4 FL (9.6-12.0); Neutrophils % 60.9 % (38.7-73.9); Red Blood Count 2.78 MC/CUMM (3.8-5.5); Red Cell Distribution Width 19.3 % (9.3-17.3); White Blood Count 7.6 T/CUMM (4-12)
[2022-01-13 06:00] LABS: Platelet Count 79 T/CUMM (130-400)
[2022-01-13 06:16] LABS: Hypochromia 1+; Lymphocytes 26 % (20-55); Microcytosis 1+; Nucleated Red Blood Cells 3 (0-5); Platelet Estimate Decreased; Segmented Neutrophils 68 % (50-85); Total Cells Counted 100
[2022-01-13 06:21] LABS: Calcium 7.9 MG/DL (8.5-10.1); Osmolality,Calculated 298.6 MOS/KG (273-304); Potassium 4.1 MMOL/L (3.5-5.1)
[2022-01-13] MEDS: HYDROCORTISONE 100 MG VIAL IV SCH ×2 (09:44→20:50)
[2022-01-13] MEDS: PANTOPRAZOLE 40 MG VIAL IV SCH (09:49)
[2022-01-13] MEDS: FONDAPARINUX 7.5 MG/0.6 ML SYRINGE SUBCUT SCH (09:53)
[2022-01-13] MEDS: MINERAL OIL/PETROLATUM OPH OINT 3.5 GM TUBE BOTH EYES SCH ×3 (09:54→20:49)
[2022-01-13] MEDS: METOPROLOL TARTRATE 50 MG TABLET PER TUBE SCH ×2 (09:58→20:49)
[2022-01-14] MEDS: INSULIN REGULAR 100 UNIT/ML SUBCUT SCH ×3 (00:33→12:14)
[2022-01-14] MEDS: CEFEPIME 1,000 MG in SODIUM CHLORIDE 0.9% 100 ML IV SCH ×2 (04:30→10:35)
[2022-01-14 05:02] LABS: ABG Base Excess 2.1 MMOL/L (-2.5-2.5); ABG HCO3 26.2 MMOL/L (20-26); ABG Oxygen Saturation 94.3 % (95-100); ABG PCO2 35.5 MM HG (35-48); ABG PH 7.467 (7.35-7.45); ABG PO2 73.5 MM HG (80-95)
[2022-01-14 05:22] LABS: Calcium 7.9 MG/DL (8.5-10.1); Osmolality,Calculated 298.4 MOS/KG (273-304); Potassium 3.9 MMOL/L (3.5-5.1)
[2022-01-14 05:28] LABS: Basophils % 0.1 % (0.0-0.8); Eosinophils % 0.6 % (0.00-10.9); Hematocrit 24.9 VOL% (42.0-52.0); Hemoglobin 7.8 GM/DL (14.0-18.0); Immature Granulocytes Absolute 0.42 #; Lymphocytes # 1.9 10*3/uL (1.4-4.0); Lymphocytes % 26.8 % (21.2-54.2); Mean Corpuscular HGB Conc 31.3 GM/DL (32-36); Mean Corpuscular Volume 89.2 FL (87-102); Mean Platelet Volume 12.3 FL (9.6-12.0); Monocytes % 6.8 % (1.7-12.7); Neutrophils % 59.7 % (38.7-73.9); Red Blood Count 2.79 MC/CUMM (3.8-5.5); Red Cell Distribution Width 19.1 % (9.3-17.3)
[2022-01-14 05:31] LABS: Platelet Count 78 T/CUMM (130-400)
[2022-01-14 05:49] LABS: Band Neutrophils 1 % (0-10); Hypochromia 1+; Lymphocytes 27 % (20-55); Microcytosis 1+; Platelet Estimate Decreased; Segmented Neutrophils 64 % (50-85); Total Cells Counted 100
[2022-01-14] MEDS: PANTOPRAZOLE 40 MG VIAL IV SCH (08:27)
[2022-01-14] MEDS: HYDROCORTISONE 100 MG VIAL IV SCH (08:27)
[2022-01-14] MEDS: METOPROLOL TARTRATE 50 MG TABLET PER TUBE SCH (08:28)
[2022-01-14] MEDS: FONDAPARINUX 7.5 MG/0.6 ML SYRINGE SUBCUT SCH (08:28)
[2022-01-14] MEDS: MINERAL OIL/PETROLATUM OPH OINT 3.5 GM TUBE BOTH EYES SCH (08:40)
[2022-01-14] MEDS ORDERED: HYDROCORTISONE 10 MG TABLET PER TUBE SCH (09:00)
[2022-01-14] MEDS: POTASSIUM CHLORIDE RIDER 20 MEQ/100 ML PREMIX IV PRN (10:35)
[2022-01-14] MEDS ORDERED: MORPHINE 2 MG/1 ML SYRINGE ONE (11:18)
[2022-01-14] MEDS: MORPHINE 2 MG/1 ML SYRINGE IV PRN ×4 (11:20→13:56)
[2022-01-14] MEDS: LORazepam 2 MG/1 ML VIAL IV PRN ×2 (11:25→12:25)
== END 2022-01-14 14:45 | disposition expired | DRG 637 ==
LOC: N.ED 16:51 → N.EDINP 18:04 → N.ICU 19:20
PROVIDERS: ADMIT Internal Medicine; ATTEND Internal Medicine